=== PATIENT | male | born 1940 | race Caucasian/White ===

== ENCOUNTER 2022-06-03 06:14 | Emergency (ER) | payer OTHER ==
[2022-06-03] MEDS ORDERED: Ketorolac 30 MG/ML SDV IM ONE (07:11)
[2022-06-03] MEDS ORDERED: HYDROmorphone 0.5 MG/0.5 ML Syringe IM ONE (07:12)
== END 2022-06-03 08:57 | disposition home or self-care (01) ==
LOC: JD.ED 06:14
DX: M54.50 Low back pain, unspecified (principal); I10 Essential (primary) hypertension; Z95.0 Presence of cardiac pacemaker; Z86.16 Personal history of COVID-19; W19.XXXA Unspecified fall, initial encounter
CPT/HCPCS: 72131; 72131-26; 96372; 99283